=== PATIENT | female | born 1995 | race African-American/Black ===

== ENCOUNTER 2016-10-16 23:11 | Emergency (ER) | payer OTHER ==
[~2016-10-16] VITALS: Ht 157.5 cm; Wt 55.8 kg
[2016-10-17] MEDS ORDERED: ONDANSETRON 4 MG/2 ML VIAL IV ONE (00:15)
[2016-10-17] MEDS ORDERED: ONDANSETRON 4 MG/2 ML VIAL ONE (00:44)
[2016-10-17 00:50] LABS: *BILIRUBIN,URIN NEGATIVE (NEGATIVE); *BLOOD, URINE NEGATIVE (NEGATIVE); *CLARITY,URINE CLEAR (CLEAR); *COLOR,URINE YELLOW (YELLOW); *KETONES,URINE NEGATIVE (NEGATIVE); *PROTEIN,URINE NEGATIVE (NEGATIVE); *UROBILINOGEN,URINE 0.2 E.U./dl (NORMAL); LEUKOCYTE ESTERASE ,URINE NEGATIVE (NEGATIVE); NITRITE, URINE NEGATIVE (NEGATIVE); PH,URINE 5.5 (5.0-8.0); UGLUCOSE NEGATIVE (NEGATIVE)
[2016-10-17 00:53] LABS: *URINE HCG, QUAL NEGATIVE (NEGATIVE); BACTERIA,URINE FEW /HPF (NONE SEEN); RBC,URINE 0-3 /HPF (0-3); SQUAMOUS EPITHELIAL CELL,UR FEW /HPF (NONE SEEN); WBC,URINE 0-3 /HPF (0-3)
[2016-10-17 00:56] LABS: *AMPHETAMINE, URINE NEGATIVE (NEGATIVE); *BARBITURATE, URINE NEGATIVE (NEGATIVE); *CANNABINOID, URINE POSITIVE (NEGATIVE); *COCCAINE, URINE NEGATIVE (NEGATIVE); *OPIATE, URINE NEGATIVE (NEGATIVE); *PHENCYCLIDINE SCREEN,URINE NEGATIVE (NEGATIVE)
[2016-10-17 01:14] LABS: BASOPHILS % (AUTO) 0.1 % (0.0-2.0); EOSINOPHILS % (AUTO) 0.3 % (0.0-7.0); HEMATOCRIT 43.4 % (31.2-41.9); HEMOGLOBIN 14.8 g/dL (10.9-14.3); LYMPHOCYTES % (AUTO) 9.7 % (20.5-51.5); MEAN CORPUSCULAR HGB CONC 34 g/dL (32.3-35.6); MEAN CORPUSCULAR VOLUME 91.3 fL (75.5-95.3); NEUTROPHILS # (AUTO) 8.4 K/uL (1.8-8.9); NEUTROPHILS % (AUTO) 79.9 % (38.5-71.5); PLATELET COUNT (AUTO) 203 K/uL (179-408); RED BLOOD CELL COUNT(AUTO) 4.76 MIL/uL (3.63-4.92); RED CELL DISTRIBUTION WIDTH 12.1 % (12.3-17.7); WHITE BLOOD COUNT (AUTO) 10.4 K/uL (3.8-11.8)
[2016-10-17 01:17] LABS: CALCIUM 8.8 mg/dL (8.5-10.1); CREATININE 0.9 mg/dL (0.6-1.3); POTASSIUM 4.2 mmol/L (3.5-5.1)
[2016-10-17 01:24] LABS: ALBUMIN 4.1 g/dL (3.4-5.0); BILIRUBIN,DIRECT 0.1 mg/dL (0.0-0.2); BILIRUBIN,TOTAL 0.4 mg/dL (0.2-1.0); TOTAL PROTEIN, SERUM 8.1 g/dL (6.4-8.2)
[2016-10-17] MEDS ORDERED: IOHEXOL 300MG/ML 100 ML INFUS..BTL ONE (01:52)
[2016-10-17] MEDS ORDERED: IV NORMAL SALINE 250 ML IV ONE (01:52)
[2016-10-17] MEDS ORDERED: IV D5/ 0.9% NACL 1,000 ML IV ONE (02:15)
--- NOTE | 2016-10-17 04:30 | NUR ---
PT SLEEPING IN ROOM WITH NO DISTRESS NOTED
--- NOTE | 2016-10-17 05:50 | NUR ---
IV removed. Catheter intact and site benign. Pressure and 4x4 gauze applied to site. No bleeding noted.
[2016-10-17 06:13] VITALS: BP 118/78
--- NOTE | 2016-10-17 06:13 | NUR ---
Patient discharged to home in stable conditon. Written and verbal after care instructions given. Patient verbalizes understanding of instructions. WALKED OUT OF ER WITH STEADY GAIT
== END 2016-10-17 06:14 | disposition home or self-care (01) ==
LOC: ER 23:11
DX: R53.1 Weakness (principal); R11.2 Nausea with vomiting, unspecified; M54.5 Low back pain; G89.29 Other chronic pain
CPT/HCPCS: 36415; 80307; 83690; 84703; 85025; 85730; A4663; G6040-TC; J2405; J7042; J7050; Q9967